=== PATIENT | male | born 1990 | race Two or more races ===

== ENCOUNTER → 2024-04-08 | Outpatient (CLI) | payer MEDICAID, SELFPAY ==
--- NOTE | 2024-04-08 09:09 | XR_ITS ---
Examination: Esophagram standard Fluoroscopy Upright PA chest single view Soft tissue lateral neck single view 17 spot fluoroscopic films of the esophagus Exam date and time: April 08, 2024 0938 hours INDICATIONS: Coughing up blood beginning 8 months ago. TECHNIQUE AND FINDINGS: Patient swallowed thin barium with 17 spot fluoroscopic films of the esophagus Upright PA chest single view straits 4 mm pulmonary nodule left upper lobe which may represent a granuloma Soft tissue lateral neck demonstrates normal epiglottis Primary peristaltic esophageal waves are noted There is mild intermittent gastroesophageal reflux There is no stricture at the gastroesophageal junction No esophageal ulcerations or constricting esophageal lesion There appears to be mucosal fold thickening in the gastric antrum IMPRESSION: Mild intermittent gastroesophageal reflux There is no stricture the gastroesophageal junction Recommend upper GI series follow-up to exclude antral gastritis Fluoroscopy 0.14 minutes 17 spot fluoroscopic films of the esophagus
== END | disposition home or self-care (01) ==
PROVIDERS: PCP Otolaryngology; Referring Provider Otolaryngology; Visit Provider Otolaryngology
DX: K21.9 Gastro-esophageal reflux disease without esophagitis (principal)
CPT/HCPCS: 74220

== ENCOUNTER 2024-11-24 10:15 | Day surgery (SDC) | payer MEDICAID, SELFPAY ==
[2024-11-23 15:18] VITALS: BMI 39.9
[2024-11-24] VITALS (7 sets, daily range): BP systolic 112–152; BP diastolic 74–102; PULSE 94–113; RESP 14–22; TEMP 36.7–37.7; O2SAT 94–97; BMI 38.7
--- NOTE | 2024-11-24 11:00 | EKG_ITS ---
[facility] Test Date: 2024-11-24 Pat Name: TIFFANY HOWARD Department: Room: - Gender: Male Health Care Attorney: ANA MARIA : 1990 Requested By: Jarrett Torres Order Number: [id number] Reading MD: Jarrett Torres Measurements Intervals [place] Rate: 112 P: 32 MD: 136 QRS: 36 QRSD: 88 T: 38 QT: 319 QTc: 436 Interpretive Statements SINUS TACHYCARDIA ABNORMAL RHYTHM ECG No previous ECG available for comparison /[id number]/[email or web address]/[id number]
[2024-11-24 12:00] LABS: Alanine Aminotransferase 88 U/L (10-49); Albumin, Serum 5.3 gm/dL (3.5-5.0); Albumin/Globulin Ratio 1.2 (1.2-2.2); Alkaline Phosphatase 90 U/L (46-116); Anion Gap 13 (7-16); Aspartate Amino Transferase 187 U/L (0-34); BUN/Creatinine Ratio 8 Ratio (12-20); Bilirubin,Total 3.1 mg/dL (0.3-1.2); Blood Urea Nitrogen 10 mg/dL (9-23); Calcium 10.6 mg/dL (8.3-10.6); Calcium (Corrected) 10.6 mg/dL (8.5-10.1); Carbon Dioxide 22.2 mMol/L (20.0-31.0); Chloride 98 mMol/L (98-107); Creatinine (Component) 1.3 mg/dL (0.6-1.3); Estimated Creatinine Clearance 93.2 mL/min (>60); Globulin 4.4 gm/dL (2.3-3.5); Glucose 94 mg/dL (74-106); Osmolality,Calculated 265 (275-295); Potassium 3.5 mMol/L (3.4-5.1); Sodium 133 mMol/L (136-145); Total Protein 9.7 gm/dL (5.7-8.2); eGFR > 60 See Note
[2024-11-24] MEDS: RINGERS LACTATED 500 ML 500 ML 20 ML IV (15:57)
--- NOTE | 2024-11-24 16:56 | SUR.PHASEII ---
pt received to [facility]. vss. breathing even and unlabored. denies pain and nausea. report from nurse townsend and dr lomeli.
--- NOTE | 2024-11-24 17:35 | SUR.PHASEII ---
pt discharged with all belongings via wheelchair. passing gas. denies pain and nausea. vss. breathing even and unlabored. instructions signed by dad. both verbalized understanding.
== END 2024-11-24 17:35 | disposition home or self-care (01) ==
PROVIDERS: Anesthesiology; Referring Provider Internal Medicine Gastroenterology; Visit Provider Internal Medicine Gastroenterology
PROC: 0DJD8ZZ Inspection of Lower Intestinal Tract, Via Natural or Artificial Opening Endoscopic (ICD-10-PCS; CPT 45378; principal; 2024-11-24 12:30)
PROC: (CPT 43239; 2024-11-24 12:30)
DX: D12.2 Benign neoplasm of ascending colon (principal); D12.3 Benign neoplasm of transverse colon; K64.8 Other hemorrhoids; E66.01 Morbid (severe) obesity due to excess calories; K57.31 Diverticulosis of large intestine without perforation or abscess with bleeding; K29.61 Other gastritis with bleeding; K25.9 Gastric ulcer, unspecified as acute or chronic, without hemorrhage or perforation; K31.89 Other diseases of stomach and duodenum; Z01.810 Encounter for preprocedural cardiovascular examination; K29.51 Unspecified chronic gastritis with bleeding; R94.31 Abnormal electrocardiogram [ECG] [EKG]; R00.0 Tachycardia, unspecified; Z68.38 Body mass index [BMI] 38.0-38.9, adult
CPT/HCPCS: 45385; 45380; 43239; 36415; 80053; 93005; A4217; J7120